=== PATIENT | male | born 2000 | race Asian ===

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

== ENCOUNTER → 2018-12-04 | Outpatient (CLI) | payer BC | END | disposition home or self-care (01) | LOC: LAB 09:29 | PROVIDERS: ATTEND Internal Medicine | DX: N34.2 Other urethritis (principal); E78.5 Hyperlipidemia, unspecified; R73.03 Prediabetes | CPT/HCPCS: 80053; 80061; 81001; 83036; 85025 ==

== ENCOUNTER → 2018-12-14 | Outpatient (CLI) | payer BC | END | disposition home or self-care (01) | LOC: C/S 11:48 | PROVIDERS: ATTEND Internal Medicine | DX: N20.1 Calculus of ureter (principal) | CPT/HCPCS: 74176 ==

== ENCOUNTER → 2018-12-18 | Outpatient (CLI) | payer BC | END | disposition home or self-care (01) | LOC: LAB 09:57 | PROVIDERS: ATTEND Internal Medicine | DX: R31.9 Hematuria, unspecified (principal); E86.0 Dehydration | CPT/HCPCS: 80048; 81001; 85025 ==

== ENCOUNTER → 2019-01-01 | Outpatient (CLI) | payer BC | END | disposition home or self-care (01) | LOC: LAB 10:39 | PROVIDERS: ATTEND Internal Medicine | DX: R31.9 Hematuria, unspecified (principal); E86.0 Dehydration | CPT/HCPCS: 80048; 81003 ==